=== PATIENT | male | born 1985 | race African-American/Black ===

== ENCOUNTER 2019-06-21 17:48 | Emergency (ER) | payer OTHER ==
[~2019-06-21] VITALS: Ht 188 cm; Wt 113.4 kg
[2019-06-21] MEDS ORDERED: HYDROmorphone HCL 2 MG/ML VL IV ONE ×2 (18:45→20:45)
[2019-06-21] MEDS ORDERED: ONDANSETRON HCL 4 MG/2 ML VIAL IV ONE (18:45)
[2019-06-21 19:47] LABS: Basophils # (auto) 0 uL; Basophils % (auto) 0.2 % (0.0-2.0); Eosinophils # (auto) 0 uL; Eosinophils % (auto) 0.2 % (0.0-7.0); Hematocrit 45.1 % (41.0-53.0); Hemoglobin 15.6 g/dL (13.5-17.5); Lymphocytes # (auto) 2.1 uL; Lymphocytes % (auto) 20.4 % (10.0-50.0); Mean Corpuscular Hemoglobin 33.5 pg (28.0-32.0); Mean Corpuscular Hgb Conc. 34.5 g/dL (32.0-36.0); Monocytes # (auto) 0.6 uL; Monocytes % (auto) 6.2 % (0.0-12.0); Neutrophils # (auto) 7.3 uL; Platelet Count (auto) 307 10^3/uL (140-450); Red Blood Cells 4.65 10^6/uL (4.5-5.90); Red Cell Distribution Width 12.7 % (11.8-14.3)
[2019-06-21 20:02] LABS: Albumin 4.1 g/dL (3.4-5.0); Calcium 8.4 mg/dL (8.5-10.1); INR 1.11 (0.9-1.15); Partial Thromboplastin Time 23.8 sec (23.64-32.05); Potassium 3.5 mmol/L (3.5-5.1)
[2019-06-21 20:04] LABS: BUN/Creatinine Ratio 17.7
[2019-06-21 20:07] LABS: Bilirubin, Total 0.5 mg/dL (0.2-1.0); Total Protein 8.3 g/dL (6.4-8.2)
[2019-06-21] MEDS ORDERED: cefTRIAXone 1GM/50ML D5W 50 ML IV ONE (20:45)
[2019-06-21 20:50] VITALS: BP 112/76
[2019-06-21] MEDS ORDERED: PROMETHAZINE HCL 25 MG/ML 1ML ONE (20:56)
[2019-06-21] MEDS ORDERED: PROMETHAZINE HCL 25 MG/ML 1ML IV ONE (21:00)
== END 2019-06-21 21:02 | disposition home or self-care (01) ==
LOC: EDBD 17:48 → ER 18:00
DX: S02.32XA Fracture of orbital floor, left side, initial encounter for closed fracture (principal); S02.122A Fracture of orbital roof, left side, initial encounter for closed fracture; H05.232 Hemorrhage of left orbit; W21.03XA Struck by baseball, initial encounter; Y93.64 Activity, baseball; Y92.89 Other specified places as the place of occurrence of the external cause; Y99.8 Other external cause status
CPT/HCPCS: 36415; 70450; 70486; 72125; 80053; 85025; 85610; 85730; 96365; 96375; 96376; 99285; J0696; J1170; J2405; J2550

== ENCOUNTER → 2021-01-07 | Emergency (ER) | payer OTHER ==
[~2021-01-07] VITALS: Ht 185.4 cm; Wt 95.3 kg
[~2021-01-07] MED LIST: KETOROLAC TROMETH 60MG/2ML VIAL IM ONE; ONDANSETRON ODT 4 MG TAB PO ONE
[2021-01-07 02:01] VITALS: BP 134/89
== END | disposition home or self-care (01) ==
LOC: ER 02:01
DX: J32.0 Chronic maxillary sinusitis (principal)
CPT/HCPCS: 70486; 96372; 99284; J1885; Q0162